=== PATIENT | female | born 1995 | race American Indian/Alaskan Native ===

== ENCOUNTER 2017-09-22 12:00 | Emergency (ER) | payer OTHER, BC ==
[2017-09-22 12:21] VITALS: BP 143/90
[2017-09-22] MEDS ORDERED: MOTRIN ONE (12:42)
[2017-09-22] MEDS ORDERED: MOTRIN PO ONE (12:44)
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
== END 2017-09-22 15:08 | disposition home or self-care (01) ==
LOC: ED 12:00
DX: S29.012A Strain of muscle and tendon of back wall of thorax, initial encounter (principal); M62.838 Other muscle spasm; R51 Headache; M54.2 Cervicalgia; V89.2XXA Person injured in unspecified motor-vehicle accident, traffic, initial encounter; Y93.89 Activity, other specified; Y92.89 Other specified places as the place of occurrence of the external cause; Y99.8 Other external cause status
CPT/HCPCS: 72040; 72070; 72100; 99283